=== PATIENT | female | born 1990 | race Caucasian/White ===

== ENCOUNTER 2016-10-29 16:39 | Emergency (ER) | payer OTHER ==
[~2016-10-29] VITALS: Ht 165.1 cm; Wt 111.1 kg
[~2016-10-29 16:39] MED LIST: ACULAR 3 ML3 M1 OP; AMOXICILLIN500 M2 PO; AMOXICILLIN500 MG PO; AMOXIL500 MG PO; ANAPROX DS550 MG PO; BACTRIM DS 8001 TA1 PO; CEPHALEXIN500 M1 PO; CLARITIN10 MG PO; CLEOCIN HCL150 MG PO; CLINDAMYCIN HC300 MG PO; FIORICET 325 MG1 TAB PO; FLONASE 0.05% 121 EA NAS; IBU-8800 MG PO; MEDROL DOSEPAK4 MG PO; MOTRIN400 MG PO; MOTRIN800 MG PO; Motrin,Rufen800 MG PO; NAPROSYN500 MG PO; NKHM; PREDNISONE10 MG PO; PRENATAL1 TA1 PO; SEPTRA DS 800 M1 TAB PO; SUDAFED60 MG PO; TOBRAMYCIN 5 ML5 M1 OPH; TRAMADOL HCL50 MG PO; VOLTAREN50 M1 PO; ZANTAC150 MG PO; ZITHROMAX Z PA250 MG PO; ZOFRAN4 MG PO; Zofran4 MG PO
[2016-10-29 17:06] LABS: BASO % 0.4 % (0.0-1.0); EOS # 0.2 10*3/uL (0.0-0.4); EOS % 1.4 % (1.0-4.0); HEMATOCRIT 43.5 % (37.0-47.0); HEMOGLOBIN 14.3 g/dl (12.0-16.0); LYMPH # 2.7 10*3/uL (1.3-4.4); MEAN CELL VOLUME 85.1 fl (81.0-99.0); MEAN CORPUSCULAR HGB CONC 32.9 g/dl (33.0-37.0); MONO # 0.5 10*3/uL (0.1-1.0); MONO % 4.4 % (3.0-9.0); NEUT # 7.3 10*3/uL (2.3-7.9); NEUT % 68.4 % (47.0-73.0); PLATELET COUNT AUTOMATED 247 10*3/uL (130-400); RED BLOOD COUNT 5.11 10*6/uL (4.10-5.10); RED CELL DISTRI WIDTH 12.9 % (0-14.5); WHITE BLOOD COUNT 10.6 10*3/uL (4.8-10.8)
[2016-10-29 17:15] LABS: INTERNATIONAL NORM RATIO 0.9 (2.0-3.5); PROTHROMBIN TIME 9.8 SECONDS (9.0-12.4)
[2016-10-29 17:22] LABS: ALBUMIN 3.4 gm/dl (3.1-4.5); ALKALINE PHOSPHATASE 66 U/L (45-117); BILIRUBIN, TOTAL 0.2 mg/dl (0.2-1.0); BUN 12 mg/dl (7-24); CARBON DIOXIDE 27 mmol/L (21-32); CHLORIDE 104 mmol/L (98-107); CPK 47 U/L (26-192); EST GLOM FILT AFRICAN AMERICAN > 60 ml/min; GLUCOSE 89 mg/dL (65-99); MAGNESIUM 1.9 mg/dL (1.5-2.1); POTASSIUM 3.7 mmol/L (3.5-5.1); SGOT/AST 12 IU/L (3-35); SGPT/ALT 12 U/L (12-78); SODIUM 142 mmol/L (136-145); TOTAL PROTEIN 7.5 gm/dL (6.4-8.2)
[2016-10-29 17:25] LABS: TROPONIN I < 0.015 ng/ml (<0.045)
[2016-10-29] MEDS ORDERED: NAPROSYN500 MG PO (17:37)
== END 2016-10-29 17:39 | disposition home or self-care (01) ==
LOC: ED 16:39
PROVIDERS: Student in an Organized Health Care Education/Training Program
DX: R07.89 Other chest pain (principal); F17.200 Nicotine dependence, unspecified, uncomplicated

== ENCOUNTER 2016-11-08 20:52 | Emergency (ER) | payer OTHER ==
[~2016-11-08] VITALS: Ht 165.1 cm; Wt 113.4 kg
[2016-11-08] MEDS ORDERED: AMOXICILLIN500 M2 PO (21:01)
[2016-11-08] MEDS ORDERED: HYDROCODONE BIT1 T20 PO (21:02)
[2016-11-08] MEDS ORDERED: TYLENOL WITH CO1 TA1 PO (21:43)
== END 2016-11-08 21:29 | disposition home or self-care (01) ==
LOC: ED 20:52
DX: K08.89 Other specified disorders of teeth and supporting structures (principal); F17.200 Nicotine dependence, unspecified, uncomplicated

== ENCOUNTER 2017-02-14 19:24 | Emergency (ER) | payer OTHER ==
[~2017-02-14] VITALS: Ht 165.1 cm; Wt 113.4 kg
[~2017-02-14 19:24] MED LIST changes: +HYDROCODONE BIT1 T20 PO; +TYLENOL WITH CO1 TA1 PO
[2017-02-14 20:20] LABS: BASO # 0.1 10*3/uL (0.0-0.1); BASO % 0.5 % (0.0-1.0); EOS # 0.2 10*3/uL (0.0-0.4); EOS % 1.9 % (1.0-4.0); HEMATOCRIT 42.5 % (37.0-47.0); HEMOGLOBIN 14.3 g/dl (12.0-16.0); LYMPH # 3.1 10*3/uL (1.3-4.4); LYMPH % 30.5 % (27.0-41.0); MEAN CORPUSCULAR HGB 28.3 pg (27.0-31.0); MEAN CORPUSCULAR HGB CONC 33.6 g/dl (33.0-37.0); MEAN PLATELET VOLUME 10.5 fl (9.6-12.3); MONO # 0.4 10*3/uL (0.1-1.0); MONO % 4.1 % (3.0-9.0); NEUT # 6.4 10*3/uL (2.3-7.9); NEUT % 62.7 % (47.0-73.0); PLATELET COUNT AUTOMATED 226 10*3/uL (130-400); RED BLOOD COUNT 5.06 10*6/uL (4.10-5.10); RED CELL DISTRI WIDTH 12.8 % (0-14.5); WHITE BLOOD COUNT 10.2 10*3/uL (4.8-10.8)
[2017-02-14 20:34] LABS: ALBUMIN 3.4 gm/dl (3.1-4.5); ALKALINE PHOSPHATASE 62 U/L (45-117); BUN 11 mg/dl (7-24); CHLORIDE 106 mmol/L (98-107); CREATININE 0.91 mg/dL (0.55-1.02); LIPASE 141 U/L (73-393); POTASSIUM 3.9 mmol/L (3.5-5.1); SGOT/AST 11 IU/L (3-35); SGPT/ALT 16 U/L (12-78); SODIUM 138 mmol/L (136-145); TOTAL PROTEIN 7.6 gm/dL (6.4-8.2)
[2017-02-14 20:37] LABS: BETA-HCG, QUANT < 1.0 mIU/mL (1-3)
[2017-02-14 21:08] LABS: BILIRUBIN NEGATIVE (NEGATIVE); BLOOD NEGATIVE (NEGATIVE); CLARITY SL CLOUDY (CLEAR); COLOR YELLOW (YELLOW); GLUCOSE NEGATIVE (NEGATIVE); KETONE NEGATIVE (NEGATIVE); LEUKO ESTERASE NEGATIVE (NEGATIVE); NITRITE NEGATIVE (NEGATIVE); PH 5.5 (5.0-9.0); SPECIFIC GRAVITY >= 1.030 (1.005-1.030); UROBILINOGEN 0.2 E.U./dl (0.2-1.0)
[2017-02-14 21:17] LABS: BACTERIA 1+; EPITHELIAL CELLS 21-30
[2017-02-14] MEDS ORDERED: REGLAN5 MG PO (22:06)
[2017-02-14] MEDS ORDERED: PEPCID20 MG PO (22:06)
== END 2017-02-14 23:12 | disposition home or self-care (01) ==
LOC: ED 19:24
PROVIDERS: Emergency Medicine Emergency Medical Services
DX: K29.00 Acute gastritis without bleeding (principal); F17.200 Nicotine dependence, unspecified, uncomplicated

== ENCOUNTER → 2017-03-01 | Outpatient (CLI) | payer OTHER ==
[~2017-03-01] MED LIST changes: +PEPCID20 MG PO; +REGLAN5 MG PO
== END | disposition home or self-care (01) ==
LOC: US 07:30
DX: R10.13 Epigastric pain (principal); R11.10 Vomiting, unspecified

== ENCOUNTER 2017-03-10 02:23 | Emergency (ER) | payer OTHER ==
[~2017-03-10] VITALS: Ht 165.1 cm; Wt 113.4 kg
[2017-03-10] MEDS ORDERED: CLEOCIN HCL150 MG PO (02:45)
== END 2017-03-10 03:04 | disposition home or self-care (01) ==
LOC: ED 02:23
DX: K02.9 Dental caries, unspecified (principal)

== ENCOUNTER 2017-03-12 15:02 | Emergency (ER) | payer OTHER ==
[~2017-03-12] VITALS: Ht 165.1 cm; Wt 113.4 kg
[2017-03-12] MEDS ORDERED: ANAPROX DS550 MG PO (15:40)
[2017-03-12] MEDS ORDERED: PENICILLIN-VK500 M1 PO (15:40)
== END 2017-03-12 16:20 | disposition home or self-care (01) ==
LOC: ED 15:02
DX: K08.89 Other specified disorders of teeth and supporting structures (principal); F17.200 Nicotine dependence, unspecified, uncomplicated

== ENCOUNTER 2017-03-13 07:55 | Inpatient (IN) | payer OTHER ==
[~2017-03-13] VITALS: Ht 165.1 cm; Wt 115.7 kg
--- NOTE | ~2017-03-13 | O ---
[place], [place] OPERATIVE NOTE NAME: JAREDFE Gilmore UNIT #: [id number] ROOM: 425 DOCTOR: SHAKEEL HELLERCAROLINE BIRTHDATE: [birth year] DOS: 03/15/2017 PREOPERATIVE DIAGNOSES: Facial cellulitis, buccal space abscess. POSTOPERATIVE DIAGNOSES: Facial cellulitis, buccal space abscess. ANESTHESIA: General anesthesia with endotracheal intubation. FLUIDS: Minimal. ESTIMATED BLOOD LOSS: Minimal. COMPLICATIONS: None. CONDITION: To PACU, stable. DESCRIPTION OF PROCEDURE: The patient was brought to the OR and placed in supine position. IV and EKG lines were placed. Endotracheal intubation and general anesthesia was administered. The patient was prepped and draped for oral procedures. Risks and benefits were explained to the patient prior to surgery. Clinical exam and x-rays taken determined caries to pulp tooth #7, buccal space abscess. PROCEDURES PERFORMED: 2 PAs, complete extraction of tooth #7, incision and drainage of the buccal space abscess. A culture was taken for sensitivity. Socket and incision left open to drain, lavage x 2. Throat pack removed. The patient left the OR in good condition and went to PACU. I recommend the patient be maintained overnight and then should be ready for dental discharge tomorrow with oral antibiotics and oral pain medication is given. [place], [place] OPERATIVE NOTE NAME: JAREDFE Mando UNIT #: [id number] ROOM: 425 DOCTOR: SHAKEEL HELLERILYAE BIRTHDATE: [birth year] CAROLINE BECKFORD DMD CM:OPRECORD:OPERATIVE NOTE [id number] CAROLINE BECKFORD DMD 03/17/17 0648 interface
--- NOTE | ~2017-03-13 | CON ---
[place], [place] REPORT OF CONSULTATION NAME: FE COLEMAN UNIT #: [id number] ROOM: 425 DOCTOR: CAROLINE BECKFORD DMD BIRTHDATE: [birth year] DOS: 03/15/2017 The is a consultation for a right-sided facial swelling. The patient was admitted through the ER yesterday afternoon. On exam, the patient has moderate right-sided mid face swelling extending to the lower eyelid. The patient denied any dysphagia or dyspnea. INTRAORAL EXAMINATION: The patient has a moderate buccal space swelling extending from tooth #4 to tooth #8, does not cross the midline. No palatal swelling is noted. Tooth #7 appears caries to the pulp. Discussed treatment needed with the patient including extraction and incision and drainage or root canal therapy. The patient chose to have the tooth extracted and incision and drainage under general. Discussed the risks and benefits of treatment with the patient. Patient scheduled later this afternoon. CAROLINE BECKFORD DMD CM:CONSTR:REPORT OF CONSULTATION 0929 03/15/17 2128 interface
[~2017-03-13 07:55] MED LIST changes: +PENICILLIN-VK500 M1 PO
[2017-03-13 08:05] VITALS: BP 135/85
[2017-03-13 09:13] LABS: BASO % 0.4 % (0.0-1.0); EOS # 0.1 10*3/uL (0.0-0.4); EOS % 0.8 % (1.0-4.0); HEMATOCRIT 39.9 % (37.0-47.0); LYMPH # 1.5 10*3/uL (1.3-4.4); LYMPH % 19.3 % (27.0-41.0); MEAN CELL VOLUME 86.2 fl (81.0-99.0); MEAN CORPUSCULAR HGB 28.1 pg (27.0-31.0); MEAN CORPUSCULAR HGB CONC 32.6 g/dl (33.0-37.0); MEAN PLATELET VOLUME 10.3 fl (9.6-12.3); MONO # 0.6 10*3/uL (0.1-1.0); MONO % 7.5 % (3.0-9.0); NEUT # 5.7 10*3/uL (2.3-7.9); NEUT % 71.7 % (47.0-73.0); PLATELET COUNT AUTOMATED 203 10*3/uL (130-400); RED BLOOD COUNT 4.63 10*6/uL (4.10-5.10); RED CELL DISTRI WIDTH 13.2 % (0-14.5); WHITE BLOOD COUNT 7.9 10*3/uL (4.8-10.8)
[2017-03-13 09:26] LABS: ALBUMIN 3.1 gm/dl (3.1-4.5); ALKALINE PHOSPHATASE 63 U/L (45-117); BUN 8 mg/dl (7-24); CHLORIDE 107 mmol/L (98-107); CREATININE 0.71 mg/dL (0.55-1.02); MAGNESIUM 1.8 mg/dL (1.5-2.1); POTASSIUM 4.4 mmol/L (3.5-5.1); SGOT/AST 23 IU/L (3-35); SGPT/ALT 21 U/L (12-78); SODIUM 138 mmol/L (136-145)
[2017-03-13 09:30] LABS: BETA-HCG, QUANT < 1.0 mIU/mL (1-3)
--- NOTE | 2017-03-13 12:20 | NUR ---
PT STATES THE TORADOL WAS SLIGHTLY EFFECTIVE FOR HER DENTAL PAIN. PT TO BE TRANSPORTED TO THE 4TH FLOOR.
--- NOTE | 2017-03-13 12:30 | NUR ---
Time: 0 A 26 year old FEMALE admitted to under services of MADHAV SIMS DO. Pt. arrived via stretcher from ER. Chief complaint: RT SIDED FACIAL EDEMA. STATES SHE HAS HAD TOOTHACHE SINCE LAST MONDAY. CAME TO ER-GIVEN CLINDAMYCIN. RETURNED YESTERDAY GIVEN AMOXICILLIN. NEVER FILLED. WOKE UP THIS MORNING WITH INCREASED SWELLING. LIANET CASTILLO
[2017-03-13 12:55] VITALS: BP 110/68
--- NOTE | 2017-03-13 12:57 | NUR ---
CONSULT CALLED TO DR BECKFORD.
[2017-03-13 16:06] VITALS: BP 116/80
--- NOTE | 2017-03-13 16:44 | NUR ---
PATIENT MEDICATED WITH PO NORCO FOR PAIN 8/10 IN HER RIGHT JAW/MOUTH/FACE
--- NOTE | 2017-03-13 17:44 | NUR ---
PATIENT STATES MEDICATION EFFECTIVE
[2017-03-13 20:00] VITALS: BP 136/86
--- NOTE | 2017-03-13 20:00 | NUR ---
ASSUMED CARE OF PATIENT. ASSESSMENT COMPLETE. RESTING IN BED. NO COMPLAINTS. CALL LIGHT IN REACH. WILL CONTINUE TO MONITOR.
--- NOTE | 2017-03-13 23:30 | NUR ---
PT WAS GIVEN PRN TORDOL FOR PAIN. WILL CONTINUE TO MONITOR.
[2017-03-14] VITALS (9 sets, daily range): BP systolic 120–166; BP diastolic 75–93
--- NOTE | 2017-03-14 02:41 | NUR ---
PT SLEEPING. CALL LIGHT IN REACH, NO DISTRESS NOTED, PT RESPONDED TO PRN PAIN MEDICATION AEB SLEEPING. WILL CONITNUE TO MONITOR.
[2017-03-14 06:02] LABS: BASO % 0.4 % (0.0-1.0); EOS # 0.1 10*3/uL (0.0-0.4); EOS % 1.4 % (1.0-4.0); HEMATOCRIT 36.7 % (37.0-47.0); LYMPH # 1.9 10*3/uL (1.3-4.4); MEAN CELL VOLUME 86.4 fl (81.0-99.0); MEAN CORPUSCULAR HGB 28.2 pg (27.0-31.0); MEAN CORPUSCULAR HGB CONC 32.7 g/dl (33.0-37.0); MEAN PLATELET VOLUME 10.6 fl (9.6-12.3); MONO # 0.6 10*3/uL (0.1-1.0); MONO % 7.6 % (3.0-9.0); NEUT # 4.7 10*3/uL (2.3-7.9); NEUT % 64.3 % (47.0-73.0); PLATELET COUNT AUTOMATED 203 10*3/uL (130-400); RED BLOOD COUNT 4.25 10*6/uL (4.10-5.10); RED CELL DISTRI WIDTH 13.2 % (0-14.5); WHITE BLOOD COUNT 7.3 10*3/uL (4.8-10.8)
[2017-03-14 06:12] LABS: BUN 10 mg/dl (7-24); CHLORIDE 106 mmol/L (98-107); CREATININE 0.69 mg/dL (0.55-1.02); POTASSIUM 4.1 mmol/L (3.5-5.1); SODIUM 138 mmol/L (136-145)
--- NOTE | 2017-03-14 06:18 | NUR ---
PT GIVEN PRN TORDAL FOR PAIN. WILL CONTINUE TO MONITOR.
[2017-03-14 06:19] LABS: FREE T4 0.94 ng/dl (0.76-1.46)
--- NOTE | 2017-03-14 07:30 | NUR ---
IN TO SEE PATIENT.
--- NOTE | 2017-03-14 09:00 | NUR ---
Straddle Bug Operator in to talk to patient. Patient states lives at home with family. There are few steps in the home. Physician: chapo odom [facility]acy: [facility] Home health services: none Patient's level of ADLs: INDEPENDENT Patient has working utilities: all working DME: none Follow-up physician's appointment after d/c: will be made by hospitalist nurse director upon discharge Does patient want to access PORTAL?: no Discharge plan discussed with patient, patient lives at home with family, is independent in adls and ambulation, patient will return home when able and denies any home needs. LYNN SALEH
--- NOTE | 2017-03-14 12:03 | NUR ---
PT GIVEN IV TORADOL PER PRN ORDER FOR PAIN. WILL MONITOR EFFECTIVENESS. CALL LIGHT WITHIN REACH.
--- NOTE | 2017-03-14 13:17 | NUR ---
PT TAKEN OFF FLOOR FOR SCHEDULED SURGERY.
--- NOTE | 2017-03-14 16:53 | NUR ---
PATIENT RETURNED TO ROOM AT THIS TIME.
[2017-03-15] VITALS: BP 127/76
--- NOTE | 2017-03-15 04:04 | NUR ---
PATIENT ASLEEP IN BED AT THIS TIME. RESPIRATIONS EASY. NO S/S OF DISTRESS NOTED. WILL MONITOR.
[2017-03-15 08:00] VITALS: BP 134/81
--- NOTE | 2017-03-15 09:00 | NUR ---
case management visits with patient, patient denies any home needs
[2017-03-15 12:00] VITALS: BP 120/68
--- NOTE | 2017-03-15 12:03 | NUR ---
MEDICATED PO NORCO FOR C/O PAIN IN RIGHT FACE AND MOUTH. RATES PAIN 5/10.
--- NOTE | 2017-03-15 12:30 | NUR ---
CALLED DR. BECKFORD'S OFFICE, LEFT VOICEMAIL ON ANSWERING MACHINE AT THIS TIME.
--- NOTE | 2017-03-15 12:59 | NUR ---
SPOKE WITH DR. BECKFORD AT THIS TIME, HIS RECOMMENDATIONS WERE PASSED ON TO DR. BRUCE.
[2017-03-15] MEDS ORDERED: VITAMIN D32000 UNIT PO (13:58)
[2017-03-15 16:00] VITALS: BP 126/67
--- NOTE | 2017-03-15 16:30 | NUR ---
DISCHARGED TO HOME IN CARE OF FAMILY. INSTRUCTIONS AND PERSCRIPTIONS REVIEWED WITH PT. PT REFUSES FLU VACCINE.
== END 2017-03-15 16:30 | disposition home or self-care (01) | DRG 580 ==
LOC: ED 07:55 → EDHOLD 11:44 → 4E 11:44
PROVIDERS: Emergency Medicine; Internal Medicine; ADMIT Internal Medicine
PROC: 0C940ZZ Drainage of Buccal Mucosa, Open Approach (ICD-10-PCS; principal; 2017-03-15)
PROC: 0CDWXZ0 Extraction of Upper Tooth, Single, External Approach (ICD-10-PCS; 2017-03-15)
DX: L03.213 Periorbital cellulitis (principal); K12.2 Cellulitis and abscess of mouth; E44.0 Moderate protein-calorie malnutrition; Z68.41 Body mass index [BMI] 40.0-44.9, adult; L03.211 Cellulitis of face; K04.7 Periapical abscess without sinus; E66.01 Morbid (severe) obesity due to excess calories; R70.0 Elevated erythrocyte sedimentation rate; R79.82 Elevated C-reactive protein (CRP); Z78.9 Other specified health status; Z72.0 Tobacco use; Z71.6 Tobacco abuse counseling; Z79.899 Other long term (current) drug therapy; Z90.89 Acquired absence of other organs; Z82.49 Family history of ischemic heart disease and other diseases of the circulatory system

== ENCOUNTER 2017-07-09 22:55 | Emergency (ER) | payer OTHER ==
[~2017-07-09] VITALS: Ht 165.1 cm; Wt 113.4 kg
[~2017-07-09 22:55] MED LIST changes: +VITAMIN D32000 UNIT PO
[2017-07-10] MEDS ORDERED: ZOFRAN ODT4 MG SL (02:07)
[2017-07-10] MEDS ORDERED: Motrin,Rufen800 MG PO (02:07)
[2017-07-11] MEDS ORDERED: MIRALAX POWDER255 G1 PO (00:20)
== END 2017-07-10 02:36 | disposition home or self-care (01) ==
LOC: ED 22:55
DX: R51 Headache (principal); F17.200 Nicotine dependence, unspecified, uncomplicated

== ENCOUNTER 2017-07-10 21:44 | Emergency (ER) | payer OTHER ==
[~2017-07-10] VITALS: Ht 165.1 cm; Wt 113.4 kg
[~2017-07-10 21:44] MED LIST changes: +ZOFRAN ODT4 MG SL
[2017-07-10 22:31] LABS: BASO % 0.1 % (0.0-1.0); EOS % 0.1 % (1.0-4.0); HEMATOCRIT 40.2 % (37.0-47.0); HEMOGLOBIN 13.5 g/dl (12.0-16.0); LYMPH # 2.4 10*3/uL (1.3-4.4); LYMPH % 12.3 % (27.0-41.0); MEAN CELL VOLUME 84.8 fl (81.0-99.0); MEAN CORPUSCULAR HGB 28.5 pg (27.0-31.0); MEAN CORPUSCULAR HGB CONC 33.6 g/dl (33.0-37.0); MEAN PLATELET VOLUME 10.2 fl (9.6-12.3); MONO # 0.6 10*3/uL (0.1-1.0); MONO % 3.3 % (3.0-9.0); NEUT % 83.7 % (47.0-73.0); PLATELET COUNT AUTOMATED 256 10*3/uL (130-400); RED BLOOD COUNT 4.74 10*6/uL (4.10-5.10); RED CELL DISTRI WIDTH 12.7 % (0-14.5)
[2017-07-10 22:47] LABS: ALBUMIN 3.3 gm/dl (3.1-4.5); ALKALINE PHOSPHATASE 66 U/L (45-117); BUN 14 mg/dl (7-24); CHLORIDE 107 mmol/L (98-107); CREATININE 0.76 mg/dL (0.55-1.02); LIPASE 119 U/L (73-393); POTASSIUM 3.9 mmol/L (3.5-5.1); SGOT/AST 11 IU/L (3-35); SGPT/ALT 14 U/L (12-78); SODIUM 139 mmol/L (136-145); TOTAL PROTEIN 7.2 gm/dL (6.4-8.2)
[2017-07-11] MEDS ORDERED: MIRALAX POWDER255 G1 PO (00:20)
== END 2017-07-11 00:56 | disposition home or self-care (01) ==
LOC: ED 21:44
PROVIDERS: Emergency Medicine Emergency Medical Services
DX: O26.891 Other specified pregnancy related conditions, first trimester (principal); K59.00 Constipation, unspecified; R10.11 Right upper quadrant pain; R51 Headache; F17.200 Nicotine dependence, unspecified, uncomplicated

== ENCOUNTER 2017-12-24 05:05 | Emergency (ER) | payer OTHER ==
[~2017-12-24] VITALS: Ht 165.1 cm; Wt 113.4 kg
--- NOTE | ~2017-12-24 | EKG ---
[place], [place] ELECTROCARDIOGRAM REPORT NAME: FE COLEMAN UNIT #: [id number] ROOM: DOCTOR: ADAM DIANA MD BIRTHDATE: [birth year] DOS: 12/24/2017 TIME: 0508 hours. Normal sinus rhythm at 79 beats per minute. Low voltage in precordial leads. The tracing is otherwise normal. No previous tracing is available for comparison. ADAM DIANA MD CM:EKGRPT:ELECTROCARDIOGRAM REPORT [id number] ADAM DIANA MD
[~2017-12-24 05:05] MED LIST changes: +MIRALAX POWDER255 G1 PO
[2017-12-24 05:30] LABS: BASO # 0.1 10*3/uL (0.0-0.1); BASO % 0.6 % (0.0-1.0); EOS # 0.2 10*3/uL (0.0-0.4); EOS % 1.8 % (1.0-4.0); HEMOGLOBIN 13.5 g/dl (12.0-16.0); LYMPH # 3.2 10*3/uL (1.3-4.4); LYMPH % 33.4 % (27.0-41.0); MEAN CELL VOLUME 88.1 fl (81.0-99.0); MEAN CORPUSCULAR HGB 28.3 pg (27.0-31.0); MEAN CORPUSCULAR HGB CONC 32.1 g/dl (33.0-37.0); MEAN PLATELET VOLUME 10.1 fl (9.6-12.3); MONO # 0.6 10*3/uL (0.1-1.0); MONO % 5.7 % (3.0-9.0); NEUT # 5.7 10*3/uL (2.3-7.9); NEUT % 58.2 % (47.0-73.0); PLATELET COUNT AUTOMATED 215 10*3/uL (130-400); RED BLOOD COUNT 4.77 10*6/uL (4.10-5.10); RED CELL DISTRI WIDTH 13.3 % (0-14.5); WHITE BLOOD COUNT 9.7 10*3/uL (4.8-10.8)
[2017-12-24 05:37] LABS: ACT PARTIAL THROMBO TIME 23.7 SECONDS (20.8-31.5); INTERNATIONAL NORM RATIO 0.9 (2.0-3.5)
[2017-12-24 05:44] LABS: ALBUMIN 3.3 gm/dl (3.1-4.5); ALKALINE PHOSPHATASE 61 U/L (45-117); BUN 18 mg/dl (7-24); CHLORIDE 106 mmol/L (98-107); CREATININE 0.78 mg/dL (0.55-1.02); POTASSIUM 3.8 mmol/L (3.5-5.1); SGOT/AST 10 IU/L (3-35); SGPT/ALT 15 U/L (12-78); SODIUM 138 mmol/L (136-145)
[2017-12-24 05:47] LABS: TROPONIN I < 0.015 ng/ml (<0.045)
== END 2017-12-24 06:33 | disposition home or self-care (01) ==
LOC: ED 05:05
PROVIDERS: Student in an Organized Health Care Education/Training Program
DX: R07.89 Other chest pain (principal); F17.200 Nicotine dependence, unspecified, uncomplicated

== ENCOUNTER 2018-01-05 18:14 | Emergency (ER) | payer OTHER ==
[~2018-01-05] VITALS: Ht 165.1 cm; Wt 115.7 kg
[2018-01-05] MEDS ORDERED: CLINDAMYCIN HC300 MG PO (18:32)
== END 2018-01-05 18:43 | disposition home or self-care (01) ==
LOC: ED 18:14
DX: K02.9 Dental caries, unspecified (principal); F17.200 Nicotine dependence, unspecified, uncomplicated

== ENCOUNTER 2018-01-12 18:14 | Emergency (ER) | payer OTHER ==
[~2018-01-12] VITALS: Wt 115.7 kg
--- NOTE | ~2018-01-12 | EKG ---
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
[2018-01-12 18:39] LABS: BASO # 0.1 10*3/uL (0.0-0.1); BASO % 0.5 % (0.0-1.0); EOS # 0.2 10*3/uL (0.0-0.4); EOS % 1.3 % (1.0-4.0); HEMOGLOBIN 13.6 g/dl (12.0-16.0); LYMPH # 2.6 10*3/uL (1.3-4.4); LYMPH % 23.2 % (27.0-41.0); MEAN CELL VOLUME 87.9 fl (81.0-99.0); MEAN CORPUSCULAR HGB 28.5 pg (27.0-31.0); MEAN CORPUSCULAR HGB CONC 32.4 g/dl (33.0-37.0); MEAN PLATELET VOLUME 10.2 fl (9.6-12.3); MONO # 0.5 10*3/uL (0.1-1.0); MONO % 4.2 % (3.0-9.0); NEUT % 70.4 % (47.0-73.0); PLATELET COUNT AUTOMATED 246 10*3/uL (130-400); RED BLOOD COUNT 4.78 10*6/uL (4.10-5.10); RED CELL DISTRI WIDTH 13.2 % (0-14.5); WHITE BLOOD COUNT 11.4 10*3/uL (4.8-10.8)
[2018-01-12 18:55] LABS: ALBUMIN 3.2 gm/dl (3.1-4.5); ALKALINE PHOSPHATASE 63 U/L (45-117); BUN 13 mg/dl (7-24); CHLORIDE 105 mmol/L (98-107); CREATININE 0.82 mg/dL (0.55-1.02); POTASSIUM 3.8 mmol/L (3.5-5.1); SGOT/AST 9 IU/L (3-35); SGPT/ALT 13 U/L (12-78); SODIUM 139 mmol/L (136-145)
[2018-01-12 18:56] LABS: TROPONIN I < 0.015 ng/ml (<0.045)
[2018-01-12] MEDS ORDERED: PREDNISONE10 MG PO (19:04)
[2018-01-12] MEDS ORDERED: CHLORZOXAZONE500 M2 PO (19:04)
[2018-01-12] MEDS ORDERED: PROAIR HFA8.5 GM INH (19:06)
== END 2018-01-12 19:30 | disposition home or self-care (01) ==
LOC: ED 18:14
PROVIDERS: Nurse Practitioner Family
DX: R07.89 Other chest pain (principal); R03.0 Elevated blood-pressure reading, without diagnosis of hypertension; F17.200 Nicotine dependence, unspecified, uncomplicated; Z98.890 Other specified postprocedural states; Z90.89 Acquired absence of other organs; Z79.899 Other long term (current) drug therapy

== ENCOUNTER 2018-11-14 12:05 | Emergency (ER) | payer OTHER ==
[~2018-11-14] VITALS: Ht 165.1 cm; Wt 120.2 kg
[~2018-11-14 12:05] MED LIST changes: +CHLORZOXAZONE500 M2 PO; +PROAIR HFA8.5 GM INH
[2018-11-14] MEDS ORDERED: CLARITIN-D 121 EACH PO (12:23)
[2018-11-14] MEDS ORDERED: AFRIN SINUS 1515 ML NAS (12:27)
[2018-11-14] MEDS ORDERED: AFRIN 15 ML15 M1 NAS (12:34)
[2018-12-20] MEDS ORDERED: CEPHALEXIN500 M1 PO (22:34)
[2018-12-20] MEDS ORDERED: PYRIDIUM100 MG PO (22:34)
== END 2018-11-14 12:40 | disposition home or self-care (01) ==
LOC: ED 12:05
DX: R09.81 Nasal congestion (principal); H93.8X2 Other specified disorders of left ear; F17.200 Nicotine dependence, unspecified, uncomplicated; Z79.899 Other long term (current) drug therapy; Z79.2 Long term (current) use of antibiotics

== ENCOUNTER 2019-08-08 07:41 | Emergency (ER) | payer OTHER ==
[~2019-08-08] VITALS: Ht 152.4 cm; Wt 120.2 kg
[~2019-08-08 07:41] MED LIST changes: +AFRIN 15 ML15 M1 NAS; +AFRIN SINUS 1515 ML NAS; +CLARITIN-D 121 EACH PO; +PYRIDIUM100 MG PO
[2019-08-08 08:53] LABS: BASO % 0.4 % (0.0-1.0); EOS # 0.1 10*3/uL (0.0-0.4); EOS % 1.3 % (1.0-4.0); HEMATOCRIT 44.8 % (37.0-47.0); HEMOGLOBIN 14.4 g/dl (12.0-16.0); LYMPH # 2.3 10*3/uL (1.3-4.4); LYMPH % 24.8 % (27.0-41.0); MEAN CELL VOLUME 89.2 fl (81.0-99.0); MEAN CORPUSCULAR HGB 28.7 pg (27.0-31.0); MEAN CORPUSCULAR HGB CONC 32.1 g/dl (33.0-37.0); MONO # 0.5 10*3/uL (0.1-1.0); MONO % 5.2 % (3.0-9.0); NEUT # 6.4 10*3/uL (2.3-7.9); NEUT % 68.2 % (47.0-73.0); PLATELET COUNT AUTOMATED 256 10*3/uL (130-400); RED BLOOD COUNT 5.02 10*6/uL (4.10-5.10); RED CELL DISTRI WIDTH 12.9 % (0-14.5); WHITE BLOOD COUNT 9.4 10*3/uL (4.8-10.8)
[2019-08-08 09:03] LABS: BILIRUBIN NEGATIVE (NEGATIVE); BLOOD NEGATIVE (NEGATIVE); CLARITY CLEAR (CLEAR); COLOR YELLOW (YELLOW); GLUCOSE NEGATIVE (NEGATIVE); KETONE NEGATIVE (NEGATIVE); LEUKO ESTERASE NEGATIVE (NEGATIVE); NITRITE NEGATIVE (NEGATIVE); PH 6.5 (5.0-9.0); UROBILINOGEN 0.2 E.U./dl (0.2-1.0)
[2019-08-08 09:10] LABS: ALBUMIN 3.6 gm/dl (3.1-4.5); ALKALINE PHOSPHATASE 75 U/L (45-117); BUN 15 mg/dl (7-24); CHLORIDE 108 mmol/L (98-107); CREATININE 0.71 mg/dL (0.55-1.02); LIPASE 141 U/L (73-393); POTASSIUM 4.3 mmol/L (3.5-5.1); SGOT/AST 12 IU/L (3-35); SGPT/ALT 25 U/L (12-78); SODIUM 137 mmol/L (136-145); TOTAL PROTEIN 7.7 gm/dL (6.4-8.2)
[2019-08-08 09:11] LABS: WBC 0-2 wbc/hpf (0-5)
[2019-08-08] MEDS ORDERED: ZOFRAN4 MG PO (09:18)
== END 2019-08-08 09:25 | disposition home or self-care (01) ==
LOC: ED 07:41
PROVIDERS: Emergency Medicine
DX: R10.11 Right upper quadrant pain (principal); R10.13 Epigastric pain; R11.0 Nausea; E66.01 Morbid (severe) obesity due to excess calories; Z79.899 Other long term (current) drug therapy; Z79.2 Long term (current) use of antibiotics; Z87.891 Personal history of nicotine dependence

== ENCOUNTER 2020-01-11 22:25 | Emergency (ER) | payer OTHER ==
[~2020-01-11] VITALS: Ht 165.1 cm; Wt 122.5 kg
[2020-01-11] MEDS ORDERED: CLINDAMYCIN HC300 MG PO (23:13)
== END 2020-01-11 23:44 | disposition home or self-care (01) ==
LOC: ED 22:25
DX: L72.3 Sebaceous cyst (principal); F17.200 Nicotine dependence, unspecified, uncomplicated

== ENCOUNTER → 2020-02-20 | Outpatient (CLI) | payer OTHER | END | disposition home or self-care (01) | LOC: US 07:30 | PROVIDERS: ATTEND Nurse Practitioner Primary Care | DX: R03.0 Elevated blood-pressure reading, without diagnosis of hypertension (principal); R11.0 Nausea ==

== ENCOUNTER 2020-04-28 15:26 | Emergency (ER) | payer OTHER ==
[2020-04-28 16:16] LABS: BILIRUBIN Negative (Negative); BLOOD Negative (Negative); CLARITY Cloudy (Clear); COLOR Yellow (Yellow); GLUCOSE Negative (Negative); KETONE Negative (Negative); LEUKO ESTERASE Negative (Negative); NITRITE Negative (Negative); PH 5.5 (4.5-8.0); SPECIFIC GRAVITY >= 1.030 (1.001-1.030)
[2020-04-28] MEDS ORDERED: PYRIDIUM200 M1 PO (16:25)
[2020-04-28] MEDS ORDERED: SEPTDS PO (16:25)
== END 2020-04-28 16:29 | disposition home or self-care (01) ==
LOC: ED 15:26
PROVIDERS: Nurse Practitioner Family
DX: R30.0 Dysuria (principal); G43.909 Migraine, unspecified, not intractable, without status migrainosus; F17.200 Nicotine dependence, unspecified, uncomplicated; Z79.2 Long term (current) use of antibiotics; Z90.89 Acquired absence of other organs; Z98.890 Other specified postprocedural states

== ENCOUNTER → 2020-10-02 | Outpatient (CLI) | payer OTHER ==
[~2020-10-02] MED LIST changes: +CELEXA10 MG PO; +LISINOPRIL5 MG PO; +PYRIDIUM200 M1 PO; +SEPTDS PO
== END | disposition home or self-care (01) ==
LOC: CARD 00:42
PROVIDERS: ATTEND Nurse Practitioner Primary Care
DX: R07.9 Chest pain, unspecified (principal); I10 Essential (primary) hypertension; Z82.49 Family history of ischemic heart disease and other diseases of the circulatory system

== ENCOUNTER → 2020-12-08 | Outpatient (CLI) | payer OTHER | END | disposition home or self-care (01) | LOC: CARD 12:47 | PROVIDERS: ATTEND Internal Medicine Cardiovascular Disease | DX: I35.1 Nonrheumatic aortic (valve) insufficiency (principal) ==

== ENCOUNTER 2021-10-13 08:01 | Emergency (ER) | payer OTHER ==
[~2021-10-13] VITALS: Ht 165.1 cm; Wt 129.3 kg
[2021-10-13 08:44] LABS: BASO % 0.3 % (0.0-1.0); EOS # 0.1 10*3/uL (0.0-0.4); EOS % 1.1 % (1.0-4.0); HEMATOCRIT 42.2 % (37.0-47.0); LYMPH # 2.1 10*3/uL (1.3-4.4); LYMPH % 17.9 % (27.0-41.0); MEAN CELL VOLUME 86.1 fl (81.0-99.0); MEAN CORPUSCULAR HGB CONC 32.5 g/dl (33.0-37.0); MEAN PLATELET VOLUME 9.8 fl (9.6-12.3); MONO # 0.6 10*3/uL (0.1-1.0); MONO % 4.9 % (3.0-9.0); NEUT # 8.7 10*3/uL (2.3-7.9); NEUT % 75.6 % (47.0-73.0); PLATELET COUNT AUTOMATED 272 10*3/uL (130-400); RED CELL DISTRI WIDTH 13.5 % (0-14.5); WHITE BLOOD COUNT 11.5 10*3/uL (4.8-10.8)
[2021-10-13 09:03] LABS: ALKALINE PHOSPHATASE 72 U/L (45-117); BUN 10 mg/dl (7-24); CHLORIDE 109 mmol/L (98-107); CREATININE 0.69 mg/dL (0.55-1.02); LIPASE 97 U/L (73-393); POTASSIUM 4.2 mmol/L (3.5-5.1); SGOT/AST 10 IU/L (3-35); SGPT/ALT 17 U/L (12-78); SODIUM 139 mmol/L (136-145); TOTAL PROTEIN 7.1 gm/dL (6.4-8.2)
[2021-10-13 09:11] LABS: BETA-HCG, QUANT < 1.0 mIU/mL (1-3)
[2021-10-13] MEDS ORDERED: NYST SUSP PO (10:44)
== END 2021-10-13 11:08 | disposition home or self-care (01) ==
LOC: ED 08:01
PROVIDERS: Emergency Medicine
DX: B37.9 Candidiasis, unspecified (principal); Z90.89 Acquired absence of other organs; Z98.890 Other specified postprocedural states; Z87.891 Personal history of nicotine dependence

== ENCOUNTER 2022-08-29 19:52 | Emergency (ER) | payer OTHER ==
[~2022-08-29] VITALS: Wt 133.8 kg
[~2022-08-29 19:52] MED LIST changes: +NYST SUSP PO
[2022-08-29 21:26] LABS: BASO # 0.1 10*3/uL (0.0-0.1); BASO % 0.7 % (0.0-1.0); EOS # 0.2 10*3/uL (0.0-0.4); EOS % 2.1 % (1.0-4.0); HEMATOCRIT 41.1 % (37.0-47.0); LYMPH # 2.9 10*3/uL (1.3-4.4); LYMPH % 35.7 % (27.0-41.0); MEAN CELL VOLUME 88.4 fl (81.0-99.0); MEAN CORPUSCULAR HGB CONC 32.8 g/dl (33.0-37.0); MEAN PLATELET VOLUME 9.3 fl (9.6-12.3); MONO # 0.4 10*3/uL (0.1-1.0); MONO % 4.6 % (3.0-9.0); NEUT # 4.6 10*3/uL (2.3-7.9); NEUT % 56.7 % (47.0-73.0); PLATELET COUNT AUTOMATED 287 10*3/uL (130-400); RED BLOOD COUNT 4.65 10*6/uL (4.10-5.10); WHITE BLOOD COUNT 8.1 10*3/uL (4.8-10.8)
[2022-08-29 21:38] LABS: ACT PARTIAL THROMBO TIME 31.6 SECONDS (20.0-32.1); INTERNATIONAL NORM RATIO 0.9 (2.0-3.5)
[2022-08-29 21:43] LABS: ALKALINE PHOSPHATASE 65 U/L (46-116); BUN 9 mg/dl (9-23); CHLORIDE 102 mmol/L (98-107); LIPASE 34 U/L (12-53); POTASSIUM 3.8 mmol/L (3.4-5.1); SGPT/ALT 11 U/L (10-49); TOTAL PROTEIN 6.7 gm/dL (6.0-8.0)
[2022-08-29] MEDS ORDERED: PROTONIX40 MG PO (21:58)
== END 2022-08-29 22:42 | disposition home or self-care (01) ==
LOC: ED 19:52
PROVIDERS: Physician Assistant
DX: K21.9 Gastro-esophageal reflux disease without esophagitis (principal); J32.9 Chronic sinusitis, unspecified; I10 Essential (primary) hypertension; Z90.89 Acquired absence of other organs; Z98.890 Other specified postprocedural states; F17.200 Nicotine dependence, unspecified, uncomplicated

== ENCOUNTER 2022-11-19 12:51 | Emergency (ER) | payer OTHER ==
[~2022-11-19] VITALS: Ht 165.1 cm; Wt 133.8 kg
[~2022-11-19 12:51] MED LIST changes: +PROTONIX40 MG PO
[2022-11-19 13:23] LABS: BASO % 0.5 % (0.0-1.0); EOS # 0.2 10*3/uL (0.0-0.4); EOS % 2.1 % (1.0-4.0); HEMATOCRIT 39.8 % (37.0-47.0); LYMPH # 2.4 10*3/uL (1.3-4.4); MEAN CORPUSCULAR HGB 28.6 pg (27.0-31.0); MEAN CORPUSCULAR HGB CONC 32.2 g/dl (33.0-37.0); MEAN PLATELET VOLUME 9.7 fl (9.6-12.3); MONO # 0.4 10*3/uL (0.1-1.0); MONO % 4.6 % (3.0-9.0); NEUT # 4.7 10*3/uL (2.3-7.9); NEUT % 61.5 % (47.0-73.0); PLATELET COUNT AUTOMATED 247 10*3/uL (130-400); RED BLOOD COUNT 4.47 10*6/uL (4.10-5.10); RED CELL DISTRI WIDTH 13.2 % (0-14.5); WHITE BLOOD COUNT 7.6 10*3/uL (4.8-10.8)
[2022-11-19 13:53] LABS: URINE AMPHETAMINES Negative (1000ng/ml); URINE BARBITURATES Negative (200ng/ml); URINE BENZODIAZEPINES Negative (200ng/ml); URINE CANNABINOIDS (THC) Negative (50ng/ml); URINE COCAINE Negative (300ng/ml); URINE METHADONE Negative (300ng/ml); URINE OPIATES Negative (300ng/ml); URINE PHENCYCLIDINE Negative (25ng/ml)
[2022-11-19 13:55] LABS: ALKALINE PHOSPHATASE 63 U/L (46-116); BUN 6 mg/dl (9-23); CHLORIDE 104 mmol/L (98-107); SGPT/ALT 10 U/L (10-49); TOTAL PROTEIN 6.7 gm/dL (6.0-8.0)
[2022-11-19] MEDS ORDERED: ANTIVERT25 M2 PO (14:43)
== END 2022-11-19 15:00 | disposition home or self-care (01) ==
LOC: ED 12:51
PROVIDERS: Emergency Medicine
DX: R42 Dizziness and giddiness (principal); I10 Essential (primary) hypertension; K21.9 Gastro-esophageal reflux disease without esophagitis; F32.A Depression, unspecified; Z90.89 Acquired absence of other organs; Z98.890 Other specified postprocedural states; F17.200 Nicotine dependence, unspecified, uncomplicated; Z79.899 Other long term (current) drug therapy

== ENCOUNTER 2023-01-06 01:06 | Emergency (ER) | payer OTHER ==
[~2023-01-06] VITALS: Ht 167.6 cm; Wt 136.1 kg
[~2023-01-06 01:06] MED LIST changes: +ANTIVERT25 M2 PO
[2023-01-06 01:34] LABS: BASO # 0.1 10*3/uL (0.0-0.1); BASO % 0.4 % (0.0-1.0); EOS # 0.2 10*3/uL (0.0-0.4); EOS % 1.3 % (1.0-4.0); HEMATOCRIT 39.4 % (37.0-47.0); LYMPH # 3.5 10*3/uL (1.3-4.4); LYMPH % 31.2 % (27.0-41.0); MEAN CELL VOLUME 87.8 fl (81.0-99.0); MEAN PLATELET VOLUME 9.7 fl (9.6-12.3); MONO # 0.5 10*3/uL (0.1-1.0); MONO % 4.8 % (3.0-9.0); NEUT % 61.9 % (47.0-73.0); PLATELET COUNT AUTOMATED 241 10*3/uL (130-400); RED BLOOD COUNT 4.49 10*6/uL (4.10-5.10); RED CELL DISTRI WIDTH 13.5 % (0-14.5); WHITE BLOOD COUNT 11.3 10*3/uL (4.8-10.8)
[2023-01-06 01:52] LABS: ALKALINE PHOSPHATASE 62 U/L (46-116); BUN 8 mg/dl (9-23); CHLORIDE 105 mmol/L (98-107); POTASSIUM 3.9 mmol/L (3.4-5.1); SGPT/ALT 12 U/L (10-49); TOTAL PROTEIN 6.7 gm/dL (6.0-8.0)
[2023-01-06 02:07] LABS: ACT PARTIAL THROMBO TIME 30.6 SECONDS (20.0-32.1); INTERNATIONAL NORM RATIO 0.9 (2.0-3.5)
== END 2023-01-06 04:33 | disposition home or self-care (01) ==
LOC: ED 01:06
PROVIDERS: Emergency Medicine
DX: R07.89 Other chest pain (principal); R10.13 Epigastric pain; K21.9 Gastro-esophageal reflux disease without esophagitis; F17.200 Nicotine dependence, unspecified, uncomplicated; Z79.899 Other long term (current) drug therapy; Z90.89 Acquired absence of other organs; Z98.890 Other specified postprocedural states

== ENCOUNTER 2023-01-08 22:45 | Emergency (ER) | payer OTHER ==
[~2023-01-08] VITALS: Ht 167.6 cm; Wt 131.5 kg
[2023-01-09 00:16] LABS: BASO % 0.4 % (0.0-1.0); EOS # 0.1 10*3/uL (0.0-0.4); EOS % 1.5 % (1.0-4.0); HEMATOCRIT 40.2 % (37.0-47.0); LYMPH # 2.8 10*3/uL (1.3-4.4); LYMPH % 29.9 % (27.0-41.0); MEAN CELL VOLUME 87.6 fl (81.0-99.0); MEAN CORPUSCULAR HGB 28.1 pg (27.0-31.0); MEAN CORPUSCULAR HGB CONC 32.1 g/dl (33.0-37.0); MEAN PLATELET VOLUME 9.8 fl (9.6-12.3); MONO # 0.5 10*3/uL (0.1-1.0); MONO % 5.4 % (3.0-9.0); NEUT # 5.9 10*3/uL (2.3-7.9); NEUT % 62.6 % (47.0-73.0); PLATELET COUNT AUTOMATED 246 10*3/uL (130-400); RED BLOOD COUNT 4.59 10*6/uL (4.10-5.10); RED CELL DISTRI WIDTH 13.6 % (0-14.5); WHITE BLOOD COUNT 9.5 10*3/uL (4.8-10.8)
[2023-01-09 00:25] LABS: INTERNATIONAL NORM RATIO 0.9 (2.0-3.5)
[2023-01-09 00:29] LABS: BILIRUBIN Negative (Negative); BLOOD Negative (Negative); CLARITY Clear (Clear); COLOR Yellow (Yellow); GLUCOSE Negative (Negative); KETONE Negative (Negative); LEUKO ESTERASE Negative (Negative); NITRITE Negative (Negative); PH 6.5 (4.5-8.0); SPECIFIC GRAVITY 1.025 (1.001-1.030)
[2023-01-09 00:41] LABS: WBC 0-2 wbc/hpf (0-5)
[2023-01-09 00:55] LABS: ALKALINE PHOSPHATASE 63 U/L (46-116); BUN 12 mg/dl (9-23); CHLORIDE 105 mmol/L (98-107); LIPASE 44 U/L (12-53); POTASSIUM 3.9 mmol/L (3.4-5.1); SGPT/ALT 11 U/L (10-49); TOTAL PROTEIN 6.7 gm/dL (6.0-8.0)
== END 2023-01-09 04:14 | disposition home or self-care (01) ==
LOC: ED 22:45
PROVIDERS: Emergency Medicine
DX: R07.89 Other chest pain (principal); K80.20 Calculus of gallbladder without cholecystitis without obstruction; K21.9 Gastro-esophageal reflux disease without esophagitis; F17.200 Nicotine dependence, unspecified, uncomplicated; Z79.899 Other long term (current) drug therapy; Z98.890 Other specified postprocedural states; Z90.89 Acquired absence of other organs

== ENCOUNTER 2023-01-21 20:54 | Emergency (ER) | payer OTHER ==
[~2023-01-21] VITALS: Ht 165.1 cm; Wt 132.9 kg
[2023-01-21 21:31] LABS: BASO % 0.5 % (0.0-1.0); EOS # 0.2 10*3/uL (0.0-0.4); EOS % 1.9 % (1.0-4.0); HEMATOCRIT 41.5 % (37.0-47.0); LYMPH # 3.4 10*3/uL (1.3-4.4); LYMPH % 37.9 % (27.0-41.0); MEAN CELL VOLUME 85.9 fl (81.0-99.0); MEAN CORPUSCULAR HGB 28.2 pg (27.0-31.0); MEAN CORPUSCULAR HGB CONC 32.8 g/dl (33.0-37.0); MEAN PLATELET VOLUME 9.4 fl (9.6-12.3); MONO # 0.5 10*3/uL (0.1-1.0); MONO % 5.4 % (3.0-9.0); NEUT # 4.8 10*3/uL (2.3-7.9); PLATELET COUNT AUTOMATED 284 10*3/uL (130-400); RED BLOOD COUNT 4.83 10*6/uL (4.10-5.10); RED CELL DISTRI WIDTH 13.7 % (0-14.5); WHITE BLOOD COUNT 8.9 10*3/uL (4.8-10.8)
[2023-01-21 21:52] LABS: ALKALINE PHOSPHATASE 64 U/L (46-116); BUN 8 mg/dl (9-23); CHLORIDE 103 mmol/L (98-107); POTASSIUM 3.8 mmol/L (3.4-5.1); SGPT/ALT 12 U/L (10-49); TOTAL PROTEIN 7.1 gm/dL (6.0-8.0)
[2023-01-21] MEDS ORDERED: ZITHROMAX500 MG PO (22:23)
[2023-01-23] MEDS ORDERED: HYDROXYZINE PAM25 M1 PO (13:35)
== END 2023-01-21 22:34 | disposition home or self-care (01) ==
LOC: ED 20:54
PROVIDERS: Nurse Practitioner Family
DX: J32.9 Chronic sinusitis, unspecified (principal); R42 Dizziness and giddiness; I10 Essential (primary) hypertension; K21.9 Gastro-esophageal reflux disease without esophagitis; F32.A Depression, unspecified; Z90.89 Acquired absence of other organs; Z98.890 Other specified postprocedural states; F17.200 Nicotine dependence, unspecified, uncomplicated

== ENCOUNTER → 2023-01-26 | Day surgery (SDC) | payer OTHER ==
[2023-01-23 13:34] VITALS: BP 117/65
[~2023-01-26] VITALS: Ht 165.1 cm; Wt 132.9 kg
[2023-01-26] VITALS (7 sets, daily range): BP systolic 114–134; BP diastolic 58–97
[~2023-01-26] MED LIST changes: +COLACE100 MG PO; +HYDROCODONE-AC1 EAC1 PO; +HYDROXYZINE PAM25 M1 PO; +ONDANSETRON HYDR4 M1 PO; +ZITHROMAX500 MG PO
== END ==
LOC: SDC 01-23 13:15
PROVIDERS: ATTEND Surgery
DX: K80.10 Calculus of gallbladder with chronic cholecystitis without obstruction (principal); I10 Essential (primary) hypertension; K21.9 Gastro-esophageal reflux disease without esophagitis; F41.9 Anxiety disorder, unspecified; F32.A Depression, unspecified; G43.909 Migraine, unspecified, not intractable, without status migrainosus; F17.210 Nicotine dependence, cigarettes, uncomplicated; Z79.899 Other long term (current) drug therapy; Z90.89 Acquired absence of other organs; Z98.890 Other specified postprocedural states

== ENCOUNTER 2023-09-20 20:22 | Emergency (ER) | payer OTHER ==
[~2023-09-20] VITALS: Ht 152.4 cm; Wt 131.5 kg
[2023-09-20] MEDS ORDERED: IBUPROFEN 800 MG TAB PO ONE (20:55)
[2023-09-20 21:06] LABS: BASO % 0.5 % (0.0-1.0); EOS # 0.1 10*3/uL (0.0-0.4); EOS % 1.7 % (1.0-4.0); HEMATOCRIT 40.3 % (37.0-47.0); LYMPH # 2.7 10*3/uL (1.3-4.4); LYMPH % 32.9 % (27.0-41.0); MEAN CELL VOLUME 88.4 fl (81.0-99.0); MEAN CORPUSCULAR HGB 28.3 pg (27.0-31.0); MEAN PLATELET VOLUME 9.6 fl (9.6-12.3); MONO # 0.4 10*3/uL (0.1-1.0); MONO % 4.3 % (3.0-9.0); NEUT # 4.9 10*3/uL (2.3-7.9); NEUT % 60.4 % (47.0-73.0); PLATELET COUNT AUTOMATED 259 10*3/uL (130-400); RED BLOOD COUNT 4.56 10*6/uL (4.10-5.10); RED CELL DISTRI WIDTH 13.7 % (0-14.5); WHITE BLOOD COUNT 8.2 10*3/uL (4.8-10.8)
[2023-09-20 21:22] LABS: ALKALINE PHOSPHATASE 73 U/L (46-116); BUN 11 mg/dl (9-23); CHLORIDE 104 mmol/L (98-107); POTASSIUM 4.1 mmol/L (3.4-5.1); SGPT/ALT 12 U/L (5-49); TOTAL PROTEIN 6.6 gm/dL (6.0-8.0)
== END 2023-09-20 22:09 | disposition home or self-care (01) ==
LOC: ED 20:22
PROVIDERS: Physician Assistant Medical
DX: J06.9 Acute upper respiratory infection, unspecified (principal); Z20.822 Contact with and (suspected) exposure to COVID-19; F41.9 Anxiety disorder, unspecified; F32.A Depression, unspecified; F17.210 Nicotine dependence, cigarettes, uncomplicated; Z79.2 Long term (current) use of antibiotics; Z79.899 Other long term (current) drug therapy; Z90.89 Acquired absence of other organs; Z98.890 Other specified postprocedural states

== ENCOUNTER 2023-10-18 20:42 | Emergency (ER) | payer OTHER ==
[~2023-10-18] VITALS: Ht 165.1 cm; Wt 127.0 kg
[2023-10-18 21:11] LABS: BASO % 0.3 % (0.0-1.0); EOS # 0.2 10*3/uL (0.0-0.4); EOS % 1.8 % (1.0-4.0); HEMATOCRIT 41.1 % (37.0-47.0); LYMPH # 2.8 10*3/uL (1.3-4.4); MEAN CELL VOLUME 89.3 fl (81.0-99.0); MEAN CORPUSCULAR HGB CONC 31.4 g/dl (33.0-37.0); MEAN PLATELET VOLUME 9.5 fl (9.6-12.3); MONO # 0.4 10*3/uL (0.1-1.0); MONO % 4.9 % (3.0-9.0); NEUT # 5.4 10*3/uL (2.3-7.9); NEUT % 60.7 % (47.0-73.0); PLATELET COUNT AUTOMATED 249 10*3/uL (130-400); RED CELL DISTRI WIDTH 13.6 % (0-14.5); WHITE BLOOD COUNT 8.8 10*3/uL (4.8-10.8)
[2023-10-18 21:22] LABS: ACT PARTIAL THROMBO TIME 31.7 SECONDS (20.0-32.1)
[2023-10-18 21:49] LABS: ALKALINE PHOSPHATASE 72 U/L (46-116); BUN 12 mg/dl (9-23); CHLORIDE 104 mmol/L (98-107); POTASSIUM 3.9 mmol/L (3.4-5.1); SGPT/ALT 13 U/L (5-49); TOTAL PROTEIN 6.7 gm/dL (6.0-8.0)
[2023-10-18] MEDS ORDERED: Dicyclomine Hydrochloride 20 MG/10 ML OSYR PO STA (21:57)
[2023-10-18] MEDS ORDERED: MG-AL HYDROXIDE/SIMETICONE 30 ML UDC PO STA (21:57)
[2023-10-18] MEDS ORDERED: Lidocaine Hydrochloride 15 ML UDC PO STA (21:57)
[2023-10-18] MEDS ORDERED: OMEPRAZOLE40 MG PO (23:38)
== END 2023-10-18 23:38 | disposition home or self-care (01) ==
LOC: ED 20:42
PROVIDERS: Nurse Practitioner Family
DX: R07.89 Other chest pain (principal); K21.9 Gastro-esophageal reflux disease without esophagitis; I10 Essential (primary) hypertension; F32.A Depression, unspecified; G43.909 Migraine, unspecified, not intractable, without status migrainosus; Z90.89 Acquired absence of other organs; Z98.890 Other specified postprocedural states; F17.200 Nicotine dependence, unspecified, uncomplicated

== ENCOUNTER 2024-10-16 20:56 | Emergency (ER) | payer MEDICAID ==
[~2024-10-16] VITALS: Ht 160 cm; Wt 133.4 kg
[~2024-10-16 20:56] MED LIST changes: +OMEPRAZOLE40 MG PO
[2024-10-16] MEDS ORDERED: LORazepam 1 MG TAB PO ONE (21:35)
== END 2024-10-16 23:38 | disposition home or self-care (01) ==
LOC: ED 20:56
DX: F41.9 Anxiety disorder, unspecified (principal); I10 Essential (primary) hypertension; K21.9 Gastro-esophageal reflux disease without esophagitis; F32.A Depression, unspecified; Z79.899 Other long term (current) drug therapy; Z90.89 Acquired absence of other organs; Z98.890 Other specified postprocedural states